=== PATIENT | female | born 1965 | race Caucasian/White ===

== ENCOUNTER 2024-02-21 17:51 | Emergency (ER) | payer OTHER ==
[~2024-02-21] VITALS: Ht 165.1 cm; Wt 79.4 kg
[2024-02-21] MEDS ORDERED: Acetaminophen 500 MG Tab PO ONE (18:40)
== END 2024-02-21 19:26 | disposition home or self-care (01) ==
LOC: ER 17:51
DX: M25.462 Effusion, left knee (principal); M25.461 Effusion, right knee; M19.90 Unspecified osteoarthritis, unspecified site
CPT/HCPCS: 99282; A9270